=== PATIENT | female | born 1960 | race Caucasian/White ===

== ENCOUNTER 2020-07-30 10:51 | Emergency (ER) | payer OTHER ==
[2020-07-30] MEDS ORDERED: Ondansetron ODT 4 MG TAB ONE (11:55)
[2020-07-30] MEDS ORDERED: HYDROcodone/Acetaminophen 10/325 mg Tablet ONE (11:55)
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
== END 2020-07-30 13:00 | disposition home or self-care (01) ==
LOC: ERS 10:51
DX: M62.830 Muscle spasm of back (principal); K21.9 Gastro-esophageal reflux disease without esophagitis; Z79.899 Other long term (current) drug therapy; V49.40XA Driver injured in collision with unspecified motor vehicles in traffic accident, initial encounter
CPT/HCPCS: 70450; 72125; 72128; Q0162